=== PATIENT | female | born 1985 | race African-American/Black ===

== ENCOUNTER 2017-03-20 09:07 | Emergency (ER) | payer MEDICAID ==
[~2017-03-20] VITALS: Ht 170.2 cm; Wt 58.0 kg
[~2017-03-20 09:07] MED LIST: NONE REPORTED
[2017-03-20] MEDS ORDERED: IBUPROFEN 400MG TABLET PO ONE (10:45)
[2017-03-20 10:58] VITALS: BP 136/80
== END 2017-03-20 10:59 | disposition home or self-care (01) ==
LOC: ER 10:40
DX: H92.01 Otalgia, right ear (principal)
CPT/HCPCS: 99282

== ENCOUNTER 2017-05-20 07:14 | Emergency (ER) | payer MEDICAID, OTHER ==
[~2017-05-20] VITALS: Ht 170.2 cm; Wt 59.0 kg
[2017-05-20] MEDS ORDERED: IBUPROFEN 600MG TABLET PO ONE (09:15)
[2017-05-20 11:10] VITALS: BP 149/81
== END 2017-05-20 11:22 | disposition home or self-care (01) ==
LOC: ER 08:32
DX: S63.619A Unspecified sprain of unspecified finger, initial encounter (principal); Y04.1XXA Assault by human bite, initial encounter; Y93.89 Activity, other specified; Y92.89 Other specified places as the place of occurrence of the external cause; Y99.8 Other external cause status
CPT/HCPCS: 29130; 73130; 81025; 99284

== ENCOUNTER 2021-04-07 07:16 | Emergency (ER) | payer MEDICAID, OTHER ==
[~2021-04-07] VITALS: Ht 167.6 cm; Wt 55.0 kg
[2021-04-07] MEDS ORDERED: ALBUTEROL (0.083%) 2.5MG/3ML NEB HHN STA (07:40)
[2021-04-07] MEDS ORDERED: PREDNISONE 20MG TABLET PO STA (07:40)
[2021-04-07] MEDS ORDERED: IPRATROPIUM BROMIDE (0.02%) 0.5MG/2.5ML NEB HHN STA (07:40)
[2021-04-07] MEDS ORDERED: ALBU6.7H9 INH (08:55)
[2021-04-07] MEDS ORDERED: AZIT250T12 MT (08:55)
[2021-04-07] MEDS ORDERED: P50 MT (08:55)
[2021-04-07] MEDS ORDERED: BECL10.62 INH (08:55)
[2021-04-07] MEDS ORDERED: GUAI-453 MT (08:55)
[2021-04-07 09:12] VITALS: BP 118/82
== END 2021-04-07 09:14 | disposition home or self-care (01) ==
LOC: ER 07:56
DX: J20.9 Acute bronchitis, unspecified (principal); F12.90 Cannabis use, unspecified, uncomplicated; R03.0 Elevated blood-pressure reading, without diagnosis of hypertension
CPT/HCPCS: 71045; 81025; 94644; 99285; J7512; Z7610